=== PATIENT | male | born 1970 | race Caucasian/White ===

== ENCOUNTER 2022-01-26 13:38 | Emergency (ER) | payer OTHER, SELFPAY ==
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
--- NOTE | ~2022-01-26 | XR_ITS ---
EXAMINATION: XR CHEST CLINICAL INFORMATION: Chest wall pain. COMPARISON: None TECHNIQUE: 2 views of the chest were obtained. FINDINGS: No significant abnormality is noted involving the heart, lungs, mediastinum, bony thorax or soft tissues. Symmetric nodular densities overlying the lower chest likely representing nipples. XR/XR chest 2V IMPRESSION: No acute cardiopulmonary process.
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
[2022-01-26 14:13] VITALS: BP 119/86; PULSE 107; RESP 18; TEMP 36.6; O2SAT 98; BMI 25.7
[2022-01-26 20:26] LABS: Glucose, Whole Blood 242 mg/dL (60-115)
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
--- NOTE | 2022-01-26 21:44 | ECG_ITS ---
Test Reason : CHEST PAIN Blood Pressure : / mmHG Vent. Rate : 082 BPM Atrial Rate : 082 BPM P-R Int : 152 ms QRS Dur : 086 ms QT Int : 398 ms P-R-T Axes : 044 033 051 degrees QTc Int : 464 ms Normal sinus rhythm Nonspecific T wave abnormality Prolonged QT Abnormal ECG No previous ECGs available Referred By: Junaid Espitia Electronically Signed By:ALEKSANDR POSADAS MD
[2022-01-26 23:01] LABS: MANUAL DIFF FLAG NO
[2022-01-26 23:02] LABS: Basophils Percent Auto 0.6 % (0-2); Eosinophils Absolute Auto 0.2 X10*3/uL (0.0-0.4); Eosinophils Percent Auto 2.8 % (0-4); Hematocrit 46.8 % (42.0-52.0); Hemoglobin 16.6 g/dl (14.0-18.0); Imm Gran Abs Auto 0.02 X10*3/uL (0.00-0.03); Imm Gran Pct Auto 0.4 % (0.0-0.4); Lymphocytes Absolute Auto 1.6 X10*3/uL (1.2-4.9); Lymphocytes Percent Auto 30.7 % (20-40); Mean Corpuscular HGB Conc 35.5 g/dl (31.0-36.0); Mean Corpuscular Hemoglobin 33.2 pg (27.0-33.0); Mean Corpuscular Volume 93.6 fL (80.0-98.0); Mean Platelet Volume 9.8 fL (9.4-12.4); Monocytes Absolute Auto 0.6 X10*3/uL (0.1-1.2); Monocytes Percent Auto 11.2 % (2-11); Neutrophils Absolute Auto 2.9 x10*3/uL (2.0-8.3); Neutrophils Percent Auto 54.3 % (45-73); Platelet Count 266 X10*3/uL (160-400); Red Cell Distribution Width 11.7 % (11.0-16.0); White Blood Count 5.4 X10*3/uL (4.8-10.8)
[2022-01-26 23:23] LABS: Troponin-I High Sensitivity < 3.5 ng/L (<3.5-35.0)
[2022-01-26 23:28] LABS: Alanine Aminotransferase 56 U/L (0-40); Albumin Level 4.8 g/dL (3.5-5.0); Alkaline Phosphatase 79 U/L (39-117); Anion Gap 17 (12-20); Aspartate Amino Transferase 30 U/L (5-37); Bilirubin Total 0.8 mg/dL (0.0-1.0); Blood Urea Nitrogen 17 mg/dL (9-16); Calcium 9.5 mg/dL (8.4-10.2); Carbon Dioxide 25 mmol/L (22-29); Chloride 97 mmol/L (96-108); Creatinine Clr Calc Pharmacy 106.8; Estimated Glomerular Filt Rate > 60; Glucose Random 353 mg/dL (60-115); Potassium 4.1 mmol/L (3.3-5.1); Sodium 135 mmol/L (135-145); Total Protein 7.7 g/dL (6.5-8.0)
[2022-01-27] MEDS: iohexoL 350 MG/ML 100 ML INFUS..BTL 85 ML IV (00:12)
[2022-01-27] MEDS: Morphine Sulfate 2 MG/ML CARTRIDGE IVPUSH (00:50)
[2022-01-27] MEDS: 0.9 % Sodium Chloride 1,000 ML 999 ML IV (00:51)
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
--- NOTE | 2022-01-27 00:53 | PC.NURSE ---
Took over care from Nish ortiz at 11:15pm
[2022-01-27 00:59] VITALS: BP 129/87; PULSE 85; RESP 11; TEMP 36.7; O2SAT 93
[2022-01-27] MEDS: oxyCODONE HCl Immed Release 5 MG TABLET PO (01:24)
[2022-01-27] MEDS: Lidocaine 4 % Patch ADH..PATCH 1 PATCH TRANSDERMA (01:24)
--- NOTE | 2022-01-27 01:25 | PC.NURSE ---
Medicated per Jun. Reviewed discharge instructions with pt. pt verbalized understanding.
== END 2022-01-27 01:28 | disposition home or self-care (01) ==
PROVIDERS: Physician Assistant; Emergency Provider Internal Medicine
DX: S13.4XXA Sprain of ligaments of cervical spine, initial encounter (principal); S06.0X0A Concussion without loss of consciousness, initial encounter; S20.213A Contusion of bilateral front wall of thorax, initial encounter; R51.9 Headache, unspecified; M54.2 Cervicalgia; M54.50 Low back pain, unspecified; R10.9 Unspecified abdominal pain; R07.89 Other chest pain; V43.52XA Car driver injured in collision with other type car in traffic accident, initial encounter; Y93.9 Activity, unspecified; Y92.410 Unspecified street and highway as the place of occurrence of the external cause; Y99.9 Unspecified external cause status; Z79.899 Other long term (current) drug therapy
CPT/HCPCS: 36415; 70450; 71046; 71275; 72125; 74177; 80053; 82947; 84484; 85025; 93005; 96374; 99285; J2270; Q9967